=== PATIENT | female | born 1990 | race Caucasian/White ===

== ENCOUNTER 2018-12-23 14:49 | Outpatient (CLI) | payer OTHER ==
--- NOTE | 2018-12-23 15:43 | ULT ---
BILATERAL LOWER EXTREMITY VENOUS DOPPLER: Date: 12-23-18 Provided Clinical History: Right thigh pain. FINDINGS: Grayscale and color doppler sonography with spectral analysis was performed of the bilateral common f emoral, femoral, popliteal, posterior tibial, greater saphenous and profunda femoral veins demonstrat ing a normal sonographic appearance to each. IMPRESSION: No sonographic evidence for lower extremity deep venous thrombosis. POS: OFF
== END 2018-12-23 14:50 | disposition home or self-care (01) ==
LOC: SCSULT 14:49
PROVIDERS: ATTEND Family Medicine
DX: M79.651 Pain in right thigh (principal)
CPT/HCPCS: 93970